=== PATIENT | female | born 1995 | race African-American/Black ===

== ENCOUNTER 2022-03-02 16:05 | Inpatient (IN) ==
[2022-03-02] MEDS ORDERED: MEPERIDINE 25 MG/1 ML VIAL IV PRN (16:31)
[2022-03-02] MEDS ORDERED: TRANEXAMIC ACID 1,000 MG in SODIUM CHLORIDE 0.9% 100 ML IV PRN (16:31)
[2022-03-02] MEDS ORDERED: OXYTOCIN/LR 20 UNIT/1,000 ML BAG IV ONE (16:31)
[2022-03-02] MEDS ORDERED: CARBOPROST TROMETHAMINE 250 MCG/ML AMP IM PRN (16:31)
[2022-03-02] MEDS ORDERED: METHYLERGONOVINE 0.2 MG/1 ML AMP IM PRN (16:31)
[2022-03-02] MEDS ORDERED: ONDANSETRON 4 MG/2 ML VIAL IV PRN (16:31)
[2022-03-02] MEDS ORDERED: miSOPROStoL 200 MCG TABLET RECTAL PRN (16:31)
[2022-03-02] MEDS ORDERED: BUTORPHANOL 2 MG/ML VIAL IV PRN (16:31)
[2022-03-02] MEDS ORDERED: CITRIC ACID/SODIUM CITRATE 30 ML UDCUP PO ONE (16:33)
[2022-03-02] MEDS ORDERED: ePHEDrine 50 MG/ML VIAL IV PRN (16:33)
[2022-03-02] MEDS ORDERED: LACTATED RINGERS 1,000 ML IV ONE (16:33)
[2022-03-02] MEDS ORDERED: hydrOXYzine HCL 25 MG/1 ML VIAL IM PRN (16:33)
[2022-03-02] MEDS ORDERED: FAMOTIDINE 20 MG/2 ML VIAL IV ONE (16:33)
[2022-03-02] MEDS ORDERED: diphenhydrAMINE 50 MG/1 ML VIAL IV PRN ×2 (16:33)
[2022-03-02] MEDS ORDERED: NALOXONE 0.4 MG/ML VIAL IV PRN (16:33)
[2022-03-02] MEDS: LACTATED RINGERS 1,000 ML IV SCH ×2 (16:59→17:28)
[2022-03-02] MEDS ORDERED: fentaNYL 2 MCG/ROPIV 0.2% EPID 100 ML EPIDURAL SCH (17:00)
[2022-03-02] MEDS ORDERED: OXYTOCIN/LR 20 UNIT/1,000 ML BAG IV SCH (17:00)
[2022-03-02 17:14] LABS: Basophils % 0.4 % (0.0-0.8); Eosinophils % 0.6 % (0.00-10.9); Hematocrit 34.6 VOL% (35.7-47.0); Hemoglobin 11.4 GM/DL (12.0-16.0); Immature Granulocytes % 1.3 %; Immature Granulocytes Absolute 0.09 #; Lymphocytes # 1.4 10*3/uL (1.4-4.0); Lymphocytes % 19.3 % (21.3-54.2); Mean Corpuscular HGB Conc 32.9 GM/DL (32-36); Mean Platelet Volume 11.8 FL (9.6-12.0); Monocytes # 0.3 10*3/uL (0.11-0.8); Monocytes % 4.5 % (1.7-12.7); Neutrophils % 73.9 % (38.7-73.9); Platelet Count 197 T/CUMM (130-400); Red Blood Count 3.68 MC/CUMM (3.8-5.5); Red Cell Distribution Width 14.5 % (9.3-17.3); White Blood Count 7.1 T/CUMM (4-12)
[2022-03-02] MEDS ORDERED: TRANEXAMIC ACID 1,000 MG/10 ML VIAL ONE (19:58)
[2022-03-02] MEDS ORDERED: miSOPROStoL 200 MCG TABLET ONE (19:58)
[2022-03-02] MEDS ORDERED: SODIUM CHLORIDE 0.9% 0 ML IV ONE (19:59)
[2022-03-02] MEDS ORDERED: METHYLERGONOVINE 0.2 MG/1 ML AMP ONE (19:59)
[2022-03-02] MEDS ORDERED: CARBOPROST TROMETHAMINE 250 MCG/ML AMP IM ONE (19:59)
[2022-03-02 20:19] LABS: Cord Venous Blood HCO3 24.9 MMOL/L; Cord Venous Blood PCO2 41.2 MMHG; Cord Venous Blood PO2 34.5
[2022-03-02 20:35] LABS: Bacteria,Urine Occasional /HPF (Few); Bilirubin,Urine Negative (Negative); Blood, Urine Negative (Negative); Glucose,Urine (UA) Negative (Negative); Ketones,Urine Negative (Negative); Mucus,Urine Occasional /LPF (Occasional); Nitrite,Urine Negative (Negative); Protein,Urine Negative (Negative); RBC,Urine <1 /HPF (0-4); Squamous Epithelial Cell,Urine Occasional /HPF (0-10); Urine Appearance Clear (Clear); Urine Color Yellow (Yellow); Urine Specific Gravity 1.015 (1.001-1.035); Urine Urobilinogen 0.2 eU/dL (<2.0); Urine pH 7.5 (4.5-8.0)
[2022-03-02] MEDS ORDERED: MEASLES/MUMPS/RUBELLA VACCINE 0.5 ML VIAL SUBCUT ONE (23:36)
[2022-03-02] MEDS ORDERED: oxyCODONE/ACETAMINOPHEN 5-325 MG TABLET PO PRN (23:36)
[2022-03-02] MEDS ORDERED: BISACODYL 10 MG SUPP RECTAL PRN (23:36)
[2022-03-02] MEDS ORDERED: WITCH HAZEL PADS 100/JAR TOP PRN (23:36)
[2022-03-02] MEDS ORDERED: RHO(D) IMMUNE GLOBULIN 300 MCG SYRINGE IM ONE (23:36)
[2022-03-02] MEDS ORDERED: ACETAMINOPHEN 325 MG TABLET PO PRN (23:36)
[2022-03-02] MEDS ORDERED: DIPH/TET/ACEL PERT BOOSTER VACCINE 0.5 ML VIAL IM ONE (23:36)
[2022-03-02] MEDS ORDERED: HYDROCORTISONE 2.5% RECTAL CREAM 30 GM TUBE TOP PRN (23:36)
[2022-03-02] MEDS ORDERED: LANOLIN 50% CREAM 0.3 OZ TUBE TOP PRN (23:36)
[2022-03-02] MEDS ORDERED: BENZOCAINE 20%/MENTHOL 0.5% SPRAY 56 GM CAN TOP PRN (23:36)
[2022-03-02] MEDS ORDERED: diphenhydrAMINE CAP 25 MG CAPSULE PO PRN (23:54)
[2022-03-03] MEDS: DOCUSATE SODIUM 100 MG CAPSULE PO SCH ×3 (00:02→21:38)
[2022-03-03] MEDS ORDERED: OXYTOCIN/LR 20 UNIT/1,000 ML BAG IV ONE (00:30)
[2022-03-03] MEDS: IBUPROFEN 800 MG TABLET PO PRN ×3 (02:48→14:32)
[2022-03-03 04:53] LABS: Basophils % 0.4 % (0.0-0.8); Eosinophils % 0.4 % (0.00-10.9); Hematocrit 34.4 VOL% (35.7-47.0); Immature Granulocytes Absolute 0.07 #; Lymphocytes # 1.3 10*3/uL (1.4-4.0); Lymphocytes % 18.3 % (21.3-54.2); Mean Corpuscular Volume 95.8 FL (87-102); Mean Platelet Volume 11.5 FL (9.6-12.0); Monocytes # 0.5 10*3/uL (0.11-0.8); Monocytes % 6.7 % (1.7-12.7); Neutrophils % 73.2 % (38.7-73.9); Platelet Count 159 T/CUMM (130-400); Red Blood Count 3.59 MC/CUMM (3.8-5.5); Red Cell Distribution Width 14.3 % (9.3-17.3)
[2022-03-03] MEDS: oxyCODONE/ACETAMINOPHEN 5-325 MG TABLET PO PRN (14:31)
[2022-03-04] MEDS: IBUPROFEN 800 MG TABLET PO PRN (03:33)
[2022-03-04] MEDS: DOCUSATE SODIUM 100 MG CAPSULE PO SCH (09:55)
[2022-03-04] MEDS: oxyCODONE/ACETAMINOPHEN 5-325 MG TABLET PO PRN (10:00)
[2022-03-04 11:59] VITALS: BP 102/57
== END 2022-03-04 12:54 | disposition home or self-care (01) | DRG 560 ==
LOC: N.LDOUT 16:05 → N.LD 16:09 → N.OB 23:00
PROVIDERS: ADMIT Obstetrics & Gynecology; ATTEND Obstetrics & Gynecology